=== PATIENT | male | born 1995 | race Caucasian/White ===

== ENCOUNTER 2017-07-19 05:51 | Day surgery (SDC) | payer OTHER ==
[2017-07-19] MEDS ORDERED: LR 1,000 ML IV ONE (05:59)
[2017-07-19] MEDS ORDERED: LIDOCAINE 1% 2 ML INJ ID PRN (05:59)
[2017-07-19] MEDS ORDERED: LIDO/EPI 1% **for epidural** 10 ML SDV ONE (07:05)
[2017-07-19] MEDS ORDERED: BALANCED SALT IRRIG SOLN 15 ML OPHT.BTL ONE (07:06)
[2017-07-19] MEDS ORDERED: BACITRACIN OPHTHALMIC OPTH OINTMENT ONE (07:06)
[2017-07-19] MEDS ORDERED: PROPOFOL/EMULSION 500 MG/50 ML BOTTLE IV ONE (07:15)
[2017-07-19] MEDS ORDERED: MIDAZOLAM 2 MG/2 ML VIAL ONE (07:15)
[2017-07-19] MEDS ORDERED: fentaNYL 100 MCG/2 ML INJ ONE ×2 (07:15→07:58)
--- NOTE | 2017-07-19 07:38 | PDHPUP ---
History & Physical Update H&P update statement: This history and physical update is based on an assessment of the patient which was completed after admission or registration (within 24 hours), but prior to the surgery/procedure.
[2017-07-19] MEDS ORDERED: PROPOFOL 200 MG/20 ML VIAL ONE ×2 (07:55→08:32)
[2017-07-19] MEDS ORDERED: DEXAMETHASONE 10 MG/ML VIAL IVP ONE (08:00)
[2017-07-19] MEDS ORDERED: ceFAZolin 2 GM/DEXTROSE 100 ML IV ONE (08:00)
[2017-07-19] MEDS ORDERED: ROCURONIUM 50 MG/5 ML VIAL ONE (08:04)
[2017-07-19] MEDS ORDERED: METOCLOPRAMIDE 10 MG/2 ML VIAL ONE (08:04)
[2017-07-19] MEDS ORDERED: RANITIDINE 50 MG/2 ML VIAL ONE (08:04)
[2017-07-19] MEDS ORDERED: LIDOCAINE 2% 5 ML SDV ONE (08:04)
[2017-07-19] MEDS ORDERED: ONDANSETRON 4 MG/2 ML VIAL ONE (08:04)
[2017-07-19] MEDS ORDERED: DEXAMETHASONE 4 MG/ML VIAL ONE (08:12)
[2017-07-19] MEDS ORDERED: DEXAMETHASONE 4 MG/ML VIAL IVP PRN (08:24)
[2017-07-19] MEDS ORDERED: MEPERIDINE 25 MG/ML SYR IVP PRN (08:24)
[2017-07-19] MEDS ORDERED: HYDROCODONE/APAP 5/325 TAB PO PRN (08:24)
[2017-07-19] MEDS ORDERED: NALOXONE HCL 0.4 MG/ML INJ IVP PRN (08:24)
[2017-07-19] MEDS ORDERED: PROMETHAZINE HCL 25 MG/ML INJ IVP PRN (08:24)
[2017-07-19] MEDS ORDERED: ACETAMINOPHEN 500 MG TAB PO PRN (08:24)
[2017-07-19] MEDS ORDERED: ONDANSETRON 4 MG/2 ML VIAL IVP PRN (08:24)
[2017-07-19] MEDS ORDERED: METOCLOPRAMIDE 10 MG/2 ML VIAL IVP PRN (08:24)
[2017-07-19] MEDS ORDERED: OXYCODONE/APAP 5/325 TAB PO PRN (08:24)
[2017-07-19] MEDS ORDERED: ALBUTEROL 3 ML DEYVIAL IH PRN (08:24)
[2017-07-19] MEDS ORDERED: LR 500 ML IV PRN (08:24)
[2017-07-19] MEDS ORDERED: fentaNYL 100 MCG/2 ML INJ IVP PRN (08:24)
--- NOTE | 2017-07-19 08:24 | PDANEPAE ---
ANE Past Medical History - Cardiovascular History Hx Hypertension: No Hx Arrhythmias: No Hx Chest Pain: No Hx Coronary Artery / Peripheral Vascular Disease: No Hx CHF / Valvular Disease: No Hx Palpitations: No - Pulmonary History Hx COPD: No Hx Asthma/Reactive Airway Disease: No Hx Recent Upper Respiratory Infection: No Hx Oxygen in Use at Home: No Hx Sleep Apnea: No Sleep Apnea Screening Result - Last Documented: Negative - Neurologic History Hx Cerebrovascular Accident: No Hx Seizures: No Hx Dementia: No - Endocrine History Hx Diabetes: No - Renal History Hx Renal Disorders: No - Liver History Hx Hepatic Disorders: No - Neurological & Psychiatric Hx Hx Neurological and Psychiatric Disorders: No - Cancer History Hx Cancer: No - Congenital Disorder History Hx Congenital Disorders: No - GI History Hx Gastrointestinal Disorders: No - Other Health History Other Health History: NONE - Chronic Pain History Chronic Pain: No - Surgical History Prior Surgeries: NONE ANE Review of Systems Review of Systems: - Exercise capacity METS (RN): 6 METS ANE Patient History - Allergies Allergies/Adverse Reactions: No Known Allergies Allergy (Verified 07/18/17 15:04) - Home Medications Home Medications: NK [No Known Home Meds] 07/18/17 [Last Taken Unknown] - NPO status NPO Since - Liquids (Date): 07/19/17 NPO Since - Liquids (Time): 00:01 NPO Since - Solids (Date): 07/18/17 NPO Since - Solids (Time): 19:00 - Smoking Hx Smoking Status: Never smoked - Family Anes Hx Family Hx Anesthesia Complications: NONE ANE Labs/Vital Signs - Vital Signs Blood Pressure: 137/70 Heart Rate: 77 Respiratory Rate: 16 O2 Sat (%): 96 Height: 195.58 cm Weight: 106.594 kg ANE Physical Exam - Airway Neck exam: FROM, decreased ROM Mallampati Score: Class 1 Mouth exam: normal dental/mouth exam - Pulmonary Pulmonary: no respiratory distress, no rales or rhonchi, clear to auscultation - Cardiovascular Cardiovascular: regular rate and rhythym, no murmur, rub, or gallop - ASA Status ASA Status: I ANE Anesthesia Plan Anesthesia Plan: general endotracheal anesthesia
[2017-07-19] MEDS ORDERED: BACITRACIN 50,000 UNITS/10 ML SYR IRR ONE (09:12)
[2017-07-19] MEDS ORDERED: ceFAZolin 1 GM VIAL ONE (10:53)
[2017-07-19] MEDS ORDERED: OXYCODONE/APAP 5/325 TAB ONE (11:06)
--- NOTE | 2017-07-19 11:06 | POSTANESTH ---
Post Anesthetic Evaluation Cardiovascular Status: Normal, Stable Respiratory Status: Normal, Stable Level of Consciousness/Mental Status: Can Participate in Eval Pain Control: Adequate, Prn Tx Ordered Nausea/Vomiting Control: Adequate, Prn Tx Ordered Complications Possibly Related to Anesthesia: None Noted
[2017-07-19 11:19] VITALS: O2SAT 100
[2017-07-19 11:20] VITALS: BP 140/90; PULSE 80; RESP 16; TEMP 97.7
--- NOTE | 2017-07-19 17:36 | GOP ---
[f rep st] OPERATIVE REPORT DATE OF OPERATION: 07/19/2017 SURGEON: Duane Tovar MD ANESTHESIA: General. PREOPERATIVE DIAGNOSIS: Comminuted right zygomaticomaxillary complex fracture. POSTOPERATIVE DIAGNOSIS: Comminuted right zygomaticomaxillary complex fracture. PROCEDURE PERFORMED: Open reduction and internal fixation of right comminuted ZMC fracture. FINDINGS: SPECIMENS: No specimens for Pathology. ESTIMATED BLOOD LOSS: Less then 50 mL. INDICATIONS: Comminuted right zygomaticomaxillary complex fracture. DESCRIPTION OF PROCEDURE: The patient is a 21-year-old male brought to the operating room, where gen eral anesthesia was induced and endotracheal intubation was performed. The gingival buccal sulcus an d lower eyelid were infiltrated with 1% Xylocaine with epinephrine 1:200,000 strength, roughly 7 mL w ere used. The patient was then prepped and draped in a sterile fashion. Procedure was then begun by making a gingival buccal incision with needle-tip electrocautery down to a subperiosteal plane. Subperiosteal flap was then raised overlying the maxilla and malar region, ex posing significant displaced fracture with impaction of the lateral buttress and orbital rim with barbara p-off at the orbital rim. Pendroy elevator was used to free up the periosteum, exposing the entire fra cture, including the posterior element of the fracture along the posterolateral maxillary wall until mobility was achieved. At this point, combination of butter knife and septal reducing forceps and annette ne hook were used to reduce the fracture into place. Once the fracture was aligned and in good reduc tion with good stability with the step-off at the orbital rim noted to be flattened, the 1.5 mm titan ium mini plate was then used to hold the fracture in place along the lateral buttress with 2 screws p laced above and below the fracture line that were 5 mm in length. With this plate in place, good sta bility was noted above and below the fracture line with good seating of the screws noted. The wound was then copiously irrigated with bacitracin-soaked solution, and the gingival buccal incision closed in a running locked fashion with 4-0 chromic suture. The patient was awakened, extubated and uneven tfully brought to the recovery room in stable condition, where he is expected to do well postoperativ beth. The patient tolerated the procedure well. Facial nerve branches in the midface and around the mouth on the right side were noted to be intact after waking up in the recovery room. HISTORY: A 21-year-old gentleman status post facial trauma with a right comminuted ZMC fracture. Ri sks, benefits, indications, options, hospital complications and limitations of this procedure were di scussed at length with the patient and his mother in the office, as well as in the preoperative [facility] area. Prior to signing informed consent, they were given a chance to have their questions miko moreno /[id number]/MODL
== END 2017-07-19 11:25 | disposition home or self-care (01) ==
LOC: FSGY 05:51
PROVIDERS: ATTEND Otolaryngology
PROC: 0NSM04Z Reposition Right Zygomatic Bone with Internal Fixation Device, Open Approach (ICD-10-PCS; principal; 2017-07-19 07:15)
DX: S02.40EA Zygomatic fracture, right side, initial encounter for closed fracture (principal); V19.9XXA Pedal cyclist (driver) (passenger) injured in unspecified traffic accident, initial encounter; Y93.55 Activity, bike riding
CPT/HCPCS: C1713; J0690; J1100; J2250; J2405; J2704; J2765; J2780; J3010